=== PATIENT | female | born 2000 | race Caucasian/White ===

== ENCOUNTER 2024-09-21 08:07 | Emergency (ER) | payer BC, SELFPAY ==
[2024-09-21 08:17] VITALS: BP 166/92
[2024-09-21 08:43] LABS: % Basophils 0.8 % (0-2); % Eosinophils 1.2 % (0-6); % Immature Granulocytes 0.4 % (0-0.5); % Lymphocytes 37.4 % (20.5-51.1); % Monocytes 10.7 % (1.7-9.3); % Neutrophils 49.5 % (42.2-75.2); Absolute Eosinophils 0.1 10^3/uL (0-0.7); Absolute Lymphocytes 1.8 10^3/uL (1.2-3.4); Absolute Monocytes 0.5 10^3/uL (0.1-0.6); Absolute Neutrophils 2.4 10^3/uL (1.4-6.5); Hematocrit 40.2 % (37.0-47.0); Hemoglobin 13.4 g/dL (12.0-16.0); Mean Corp Hgb Conc. 33.3 g/dL (33.0-37.0); Mean Corpuscular Hgb 28.6 pg (27.0-31.0); Mean Corpuscular Volume 85.9 fL (81.0-99.0); Mean Platelet Volume 9.7 fL (7.4-10.4); Nucleated Red Blood Cells % 0 %; Platelet Count 371 10^3/uL (130-400); Red Blood Cell Count 4.68 10^6/uL (4.20-5.40); Red Cell Dist. Width 12.2 % (11.5-14.5); White Blood Cell Count 4.9 10^3/uL (4.8-10.8)
[2024-09-21 08:51] LABS: HCG, Serum Qualitative Screen Negative
[2024-09-21 08:52] LABS: ALT (SGPT) 45 U/L (0-35); AST (SGOT) 31 U/L (14-36); Albumin 4.1 g/dl (3.5-5.0); Alkaline Phosphatase 77 U/L (38-126); Blood Urea Nitrogen 8 mg/dl (7-17); Calcium 8.9 mg/dl (8.4-10.2); Carbon Dioxide 27 mmol/L (22-30); Chloride 103 mmol/L (98-107); Glucose 105 mg/dl (70-99); Potassium 3.9 mmol/L (3.5-5.1); Sodium 135 mmol/L (135-145); Total Bilirubin 0.6 mg/dl (0.2-1.3); Total Protein 6.5 g/dl (6.3-8.2); eGFR > 60.00
--- NOTE | 2024-09-21 09:17 | ED.GENMED ---
History of Present Illness
General
Chief Complaint: Head Injury
Source: patient
Exam Limitations: none
Time Seen by Provider: 09/21/24 09:12
History of Present Illness
History of Present Illness:
See MDM
Past History
Past History
ED Past Medical History: None
ED Past Surgical History: None
Social History
Tobacco: Non-smoker
Alcohol: None
Drug: None
Personal: Single
Living: with family
Phy Exam
Physical Exam
Physical Exam:
See MDM
Course
Orders/Labs/Results
Orders:
Orders
09/21/24 08:21
Test Result ONCE
09/21/24 08:26
Complete Blood Count/With Diff Urgent
Comprehensive Metabolic Panel Urgent
HCG, Serum Qualitative Screen Urgent
09/21/24 09:16
CT Head W/o Iv Contrast Urgent
Comment:
Reason For Exam: Head injury, headache
Ibuprofen [Motrin] 600 mg PO NOW STA
Ondansetron Orally Disint [Zofran Odt (Orally Disintegrating)] 4 mg PO NOW STA
Abnormal Lab Results
09/21/24
08:26
Monocytes % 10.7 H %
(1.7-9.3)
Glucose 105 H mg/dl
(70-99)
ALT 45 H U/L
(0-35)
09/21/24 08:26
09/21/24 08:26
Vital Signs
Initial and Last Documented VS:
Initial Vital Signs
Temp Pulse Resp BP Pulse Ox
98.4 F 122 18 166/92 99
09/21/24 08:17 09/21/24 08:17 09/21/24 08:17 09/21/24 08:17 09/21/24 08:17
Last Documented Vital Signs
Temp Pulse Resp BP Pulse Ox
98.4 F 96 18 127/73 96
09/21/24 08:17 09/21/24 09:36 09/21/24 09:36 09/21/24 09:36 09/21/24 09:36
MDM/Problems Addressed
Differential Diagnosis Includes:
HPI and MDM Narrative:
23-year-old female presenting for evaluation of headache and dizziness. Patient had her right forehead on a car door 2 days ago. Since then, she has been complaining of photosensitivity and nausea and headache. Due to her dizziness, blood work
was performed. Blood work without significant abnormality. On exam, she is well-appearing and nontoxic. She has normal finger-nose bilaterally. There is mild pain with rapid horizontal eye movement. We discussed the likelihood of mild
concussion but will obtain CT scan to rule out any other significant abnormality
Physical exam
General: Well appearing and non-toxic
HEENT: protecting airway. EOMI
Neck: appears supple
CV: No evidence of cyanosis
Resp: No accessory muscle use
Abd: Non-distended
Extremities: No deformities
Neuro: alert. Normal finger-nose bilaterally
Psych: Normal affect
Skin: Intact
Problems Addressed including Acute and Chronic Conditions affecting care:
1. Head injury
Acuity: acute
Prognosis: stable
Details: Likely concussion. Will obtain CT head
Updates
CT head negative. Patient feeling better. Discussed return precautions
Differential Diagnosis (but not limited to): Concussion, migraine
Testing considered: CT neck patient denies any neck pain
Drug therapy (if applicable): OTC meds, please see d/c instruction regarding Rx drugs
Amount and/or Complexity of Data Reviewed
Clinical info obtained from: Patient
External data reviewed: N/A
Labs I independently reviewed (but not limited to): White blood cell count normal
Radiology: The CT scan was personally and independently reviewed. In addition, official CT report reviewed.
Pulse Ox: not hypoxic
EKG independently reviewed: N/A
Vice President Quality Assurance: N/A
Critical Care: N/A
Risk of Complication:
Social Determinants of health: Good social support
Discussed with other providers: N/A
Escalation of Care includes Admit/Obs: After being observed in the Emergency Department, pt stable for discharge.
Occasional wrong word or 'sound a like' substitutions may have occurred due to the inherent limitations of voice recognition software. Read the chart carefully and recognize, using context, where substitutions have occurred.
*Critical Care Note
Total Time (30-74mins, 75-104mins- exclusive of procedures): Not Applicable
ED Attending Note
-
Portions of this chart may have been created with voice recognition software.� Occasional wrong word or��sound alike� substitutions may have occurred due to the inherent limitations of voice recognition software.
Discharge Plan
Departure
Patient Disposition: Home (Routine Discharge)
Date of Disposition: 09/21/24
Time of Disposition: 10:47
Patient with high blood pressure during this ER visit?: Yes
Discharge Problem:
Concussion
Instructions: Concussion, Adult ED, BLOOD PRESSURE
Prescriptions:
New
ondansetron 4 mg Tablet,Disintegrating
4 mg PO BIDPRN PRN (Reason: nausea/vomiting) Qty: 10 0RF
No Action
sulfamethoxazole-trimethoprim [Bactrim DS] 800-160 mg Tablet
1 tab PO BID
Control Pill
1 tab PO DAILY
amitriptyline 10 mg tablet
10 mg PO DAILY Qty: 20 0RF
Stand Alone Forms: Return to Work
Activity Restrictions/Additional Instructions:
Please return for any worsening symptoms.
You may return at any time if you have further concerns.
Please follow up with your doctor at the first available appointment, preferably this week.
Thank you for choosing [facility].
Interventions
Interventions:
*Risk Screen - Suicide Last Done: 09/21/24 08:17
*General Assessment Last Done: 09/21/24 08:17
*Neglect/Abuse Screening Last Done: 09/21/24 08:17
*ED- Fall Risk Assessment Last Done: 09/21/24 09:28
*ED COVID-19 Vaccine History Last Done: 09/21/24 09:28
KF-Nygfvg-Hbahjnovei Assessment Last Done: 09/21/24 09:28
ED- Neurological Assessment Last Done: 09/21/24 09:28
ED-Skin Assessment Last Done: 09/21/24 09:28
Discharge Date and Time
Print Language: KOSOVAN
[2024-09-21] MEDS: ZOFRAN ODT (ORALLY DISINTEGRATING) 4 MG PO (09:31)
[2024-09-21] MEDS: MOTRIN 600 MG PO (09:32)
[2024-09-21 09:36] VITALS: BP 127/73
--- NOTE | 2024-09-21 11:16 | EDRN ---
Discharge instructions given to patient by . Unable to reassess pain and vital signs prior to discharge.
== END 2024-09-21 10:50 | disposition home or self-care (01) ==
LOC: EMR 08:07
PROVIDERS: Emergency Medicine; EMERGENCY PHYSICIAN Student in an Organized Health Care Education/Training Program; FAMILY PHYSICIAN Physician Assistant
DX: S06.0XAA Concussion with loss of consciousness status unknown, initial encounter (principal); X58.XXXA Exposure to other specified factors, initial encounter
CPT/HCPCS: 99284; 70450; 80053; 84703; 85025